=== PATIENT | female | born 1960 | race Caucasian/White ===

== ENCOUNTER 2016-11-25 11:06 | Emergency (ER) | payer BC ==
[2016-11-25 11:17] VITALS: BP 148/97
[2016-11-25] MEDS ORDERED: DEXAMETHASONE 10 MG/ML VIAL PO STA (13:06)
[2016-11-25] MEDS ORDERED: DEXAMETHASONE 10 MG/ML VIAL ONE (13:07)
[2016-11-25] MEDS ORDERED: CHERRY SYRUP 10 ML UDC PO ONE (13:07)
--- NOTE | 2016-11-25 13:08 | ED Physician Documentation ---
PD HPI URI - Stated complaint Stated Complaint: SOA - Chief complaint Chief Complaint: Resp - History obtained from History obtained from: Patient, Family - History of Present Illness Timing - onset: How many days ago (3) Timing duration: Days (3) Timing details: Gradual onset, Still present Associated symptoms: Ear pain, Nasal congestion, Rhinorrhea, Dry cough, Dyspnea. No: Fever Contributing factors: Sick contact Improves by: Rest, Medication Worsened by: Activity Similar symptoms before: Diagnosis (URI) Recently seen: Not recently seen - Additional information Additional information: 56 y/o female had a cold in September that resolved after about 3 weeks. She has had return of her symptoms and has some wheezing and cannot get a full deep breath. Review of Systems Constitutional: denies: Fever Eyes: denies: Decreased vision Ears: reports: Loss of hearing. denies: Ear pain Nose: reports: Rhinorrhea / runny nose, Congestion Throat: denies: Sore throat Cardiac: denies: Chest pain / pressure, Palpitations Respiratory: reports: Dyspnea, Cough, Wheezing GI: denies: Abdominal Pain, Nausea, Vomiting : denies: Dysuria, Frequency PD PAST MEDICAL HISTORY - Present Medications Home Medications: Ambulatory Orders Medication Instructions Recorded Confirmed Azithromycin [Zithromax] 250 mg PO DAILY #6 tablet 11/25/16 - Allergies Allergies/Adverse Reactions: Allergies Allergy/AdvReac Type Severity Reaction Status Date / Time No Known Drug Allergies Allergy Verified 11/25/16 11:17 PD ED PE NORMAL - Vitals Vital signs reviewed: Yes (hypertensive ) - General General: No acute distress, Well developed/nourished - HEENT HEENT: Atraumatic, PERRL, EOMI, Moist mucous membranes, Pharynx benign, Dentition benign, Other (The right ear is mildly inflammed with rounding of the landmarks. The left is clear. ) - Neck Neck: Supple, no meningeal sign, No bony TTP - Cardiac Cardiac: RRR, No murmur - Respiratory Respiratory: No respiratory distress, Other (diminished but clear. ) - Abdomen Abdomen: Soft, Non tender - Derm Derm: Normal color, Warm and dry, No rash - Extremities Extremities: No deformity, No edema - Neuro Neuro: Alert and oriented X 3, No motor deficit, No sensory deficit, Normal speech - Psych Psych: Normal mood, Normal affect Results - Vitals Vitals: Vital Signs - 24 hr 11/25/16 11:15 Temperature 36.5 C Heart Rate 84 Respiratory 18 Rate Blood Pressure 148/97 H O2 Saturation 97 PD MEDICAL DECISION MAKING - ED course Complexity details: reviewed results, considered differential, d/w patient, d/w family ED course: 56 y/o female with cough has oM on exam and is given decadron and we will start her on some zithromax. I did discuss with her the use of an inhaler and she was not in favor of this. She believe she will improve without it. She is moving fair air. Departure - Departure Disposition: Home, Self Care Clinical Impression: Otitis media Qualifiers: Otitis media type: suppurative Laterality: right Chronicity: acute Recurrence: not specified as recurrent Spontaneous tympanic membrane rupture: without spontaneous rupture Qualified Code(s): H66.001 - Acute suppurative otitis media without spontaneous rupture of ear drum, right ear Condition: Stable Instructions: ED Otitis Media Acute Adult Follow-Up: Your, doctor [Other] Prescriptions: Azithromycin [Zithromax] 250 mg PO DAILY #6 tablet Comments: Today in the Emergency Department your blood pressure was elevated. This can happen from the stress of the visit itself, from a current illness or circumstance or from uncontrolled hypertension. If you take blood pressure medications take your usual mediations, have your blood pressure re-checked in an appropriate setting and follow up any elevation with your primary care doctor. Discharge Date/Time: 11/25/16 13:15
--- NOTE | 2016-11-25 13:17 | XRAY Preliminary Report ---
Exam: XR Chest 2 View PA/LAT IMPRESSION: 1. Possible mild COPD. 2. No focal airspace consolidation. 3. Normal heart size. [facility] SITE ID: [id number]
--- NOTE | 2016-11-25 13:20 | XRAY Report ---
EXAM: CHEST RADIOGRAPHY EXAM DATE: 11/25/2016 12:56 PM. CLINICAL HISTORY: Cough dyspnea. COMPARISON: None. TECHNIQUE: 2 views. FINDINGS: Lungs/Pleura: Lucent upper lungs could be compatible with COPD. Mild biapical scarring. No focal airs pace consolidation. No evidence for pleural effusions or pneumothorax. Mediastinum: Normal heart size and mediastinum. Other: No evidence for acute bony thoracic abnormality. IMPRESSION: 1. Possible mild COPD. 2. No focal airspace consolidation. 3. Normal heart size. [facility] Referring Provider Line: [phone] SITE ID: [id number]
== END 2016-11-25 13:15 | disposition home or self-care (01) ==
LOC: ED 11:06
DX: H66.001 Acute suppurative otitis media without spontaneous rupture of ear drum, right ear (principal); R05 Cough; R03.0 Elevated blood-pressure reading, without diagnosis of hypertension
CPT/HCPCS: 71020; 99282; 99283; A9270